=== PATIENT | female | born 1960 | race Hispanic/Latino ===

== ENCOUNTER 2017-06-10 22:28 | Observation (INO) | payer OTHER ==
[~2017-06-10] VITALS: Ht 170.2 cm; Wt 117.0 kg
[~2017-06-10 22:28] MED LIST: ACET325T12 PO; ACET500T73 PO; AMLO10TA4 PO; AMLO5TAB4 PO; ATOR40TA PO; HYDR-925 PO; Hydrocodone Bit/Acetaminophen PO; IBUP400T PO; LISI1TAB7 PO; METO50TA4 PO; NITR0.4T8 SL; OLME20TA PO; RIVA10TA PO
--- NOTE | 2017-06-10 22:50 | NUR ---
URINE COLLECTED AND TAKEN TO LAB
--- NOTE | 2017-06-10 22:55 | ER.PDOC ---
General Chief Complaint: Neck/Upper back Pain Stated Complaint: NECK PAIN Time seen by MD: 22:53 Source: patient Exam Limitations: no limitations History of Present Illness Initial Comments Neck pain and dizziness. Pain comes and goes. No fever or chills. Timing/Duration: this evening Severity/Quality: moderate Method of Injury: unknown Associated Symptoms: other (headache) Allergies: Coded Allergies: levofloxacin (Verified Allergy, Severe, unknown, 02/22/16) morphine (Verified Allergy, Severe, 02/22/16) Penicillins (Verified Allergy, Unknown, unknown, 02/22/16) Home Meds Reported Medications Valsartan/Hydrochlorothiazide (DIOVAN HCT 160-25 MG TABLET) 1 Each Tablet, 1 TAB PO DAILY, #30 TAB 5 Refills 06/11/17 Metoprolol Succinate (TOPROL XL) 50 Mg Tab.er.24h, 1 TAB PO DAILY for BLOOD PRESSURE, #30 TAB 3 Refills 02/24/16 Discontinued Reported Medications Nitroglycerin (NITROGLYCERIN) 0.4 Mg Tab.subl, 0.4 MG SL BID Y for CHEST PAIN, # 2 3 Refills 02/24/16 Amlodipine Besylate (NORVASC) 10 Mg Tablet, 1 TAB PO DAILY, #30 TAB 5 Refills 02/24/16 Amlodipine Besylate (NORVASC) 5 Mg Tablet, 1 TAB PO DAILY for BLOOD PRESSURE, # 30 TAB 3 Refills 02/24/16 Atorvastatin 40MG (LIPITOR 40MG) 40 Mg Tablet, 1 TAB PO HS for CHOLESTEROL, #30 TAB 3 Refills 02/24/16 Acetaminophen (ACETAMINOPHEN) 500 Mg Tablet, 2 TAB PO BID Y for PAIN, #60 TAB 1 Refill 02/22/16 Lisinopril/Hydrochlorothiazide (LISINOPRIL-HCTZ 20-25 MG TAB) 1 Each Tablet, 1 EACH PO DAILY 11/25/13 Past Medical History Medical History: cardiac problems, high cholesterol, hypertension Surgical History: cholecystectomy, hysterectomy, knee LMP (females 10-50): hysterectomy Social History Smoking: non-smoker Alcohol Use: none Drug Use: none Review of Systems Constitutional: no symptoms reported EENTM: see HPI Respiratory: no symptoms reported Cardiovascular: no symptoms reported Gastrointestinal: no symptoms reported Musculoskeletal: see HPI All Other Systems: Reviewed and Negative Physical Exam General Appearance: No Apparent Distress, WD/WN Neck: Painful Range of Motion, Paraspinous Muscle Tender Cardiovascular/Respiratory: Regular Rate, Rhythm, No M/R/G, Normal Peripheral Pulses, No JVD, Normal Breath Sounds, No Respiratory Distress Gastrointestinal: Normal Bowel Sounds, No Organomegaly, No Pulsatile Mass, Non Tender, Soft Back: Normal Inspection, No CVA Tenderness, No Vertebral Tenderness Extremities: No Evidence of Injury, Normal Range of Motion, Non-Tender, No Pedal Edema, Pelvis Stable Neuro/Psych: Alert, 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/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, mood/effect nml, No Motor/Sensory Deficits, Relexes nml Results/Orders Results/Orders Laboratory Tests Test 06/10/17 00:00 06/10/17 22:55 Urine Collection Type VOID Urine Color STRAW (YELLOW) Urine Appearance CLEAR (CLEAR) Urine Bilirubin NEGATIVE MG/DL (NEGATIVE) Urine Ketones NEGATIVE (NEGATIVE) Urine Specific [place] 1.005 (1.005-1.035) Urine pH 6.5 (5.0-6.0) Urine Protein NEGATIVE (NEGATIVE) Urine Urobilinogen NORMAL (NEGATIVE) Urine Nitrate NEGATIVE (NEGATIVE) Urine Leukocyte Esterase 100/ul 1+ (NEGATIVE) Urine Blood NEGATIVE (NEGATIVE) Urine RBC 0-2 RBC/HPF (NONE SEEN) Urine WBC 5-10 WBC/HPF (0-2) Urine Squamous Epithelial Cells RARE #/HPF (FEW) Urine Bacteria NONE SEEN (NONE SEEN) Urine Glucose NORMAL (NEGATIVE) White Blood Count 10.2 10^3/uL (4.5-11.0) Red Blood Count 4.61 10^6/uL (4.00-5.20) Hemoglobin 13.4 g/dL (12.0-15.0) Hematocrit 41.0 % (36.0-46.0) Mean Corpuscular Volume 88.9 fL (78-100) Mean Corpuscular Hemoglobin 29.1 pg (26-34) Mean Corpuscular Hemoglobin Concent 32.7 g/dL (33-37) Red Cell Distribution Width 12.7 % (11.5-14.5) Platelet Count 267 10^3/uL (150-400) Mean Platelet Volume 9.6 fL (7.8-11.0) Neutrophils (%) (Auto) 58.4 % (41.0-85.0) Lymphocytes (%) (Auto) 33.5 % (24.0-44.0) Monocytes (%) (Auto) 4.8 % (5.0-12.0) Neutrophils # (Auto) 6.0 10^3/uL (1.8-7.7) Lymphocytes # (Auto) 3.4 10^3/uL (1.0-4.8) Monocytes # (Auto) 0.5 10^3/uL (0.3-0.8) Absolute Immature Granulocyte (auto 0.01 10^3 u/L (0-2) Eosinophils % 3.0 % (0.0-5.0) Basophils % 0.2 % (0.0-0.2) Basophils # 0.0 10^3/uL (0.0-0.1) Eosinophil Count 0.3 10^3/uL (0.0-0.2) Sodium Level 124 mmol/L (132-145) Potassium Level 2.9 mmol/L (3.6-5.2) Chloride Level 96.0 mmol/L (96-109) Carbon Dioxide Level 28.3 mmol/L (20.0-32) Anion Gap 2.6 Blood Urea Nitrogen 21 mg/dL (7-18) Creatinine 0.90 mg/dL (0.59-1.40) Estimated GFR () 77.8 (>/=60) BUN/Creatinine Ratio 23.0 Glucose Level 120 mg/dL (70-110) Calcium Level 9.3 mg/dL (8.4-10.5) Total Bilirubin 0.3 mg/dL (0.2-1.0) Aspartate Amino Transf (AST/SGOT) 19 U/L (0-35) Alanine Aminotransferase (ALT/SGPT) 12 U/L (12-78) Alkaline Phosphatase 77 U/L (50-136) Total Creatine Kinase 63 U/L (26-192) Creatine Kinase MB 0.8 ng/mL (0.0-3.6) Troponin I < 0.02 ng/mL (0.00-0.05) Total Protein 7.9 g/dL (6.4-8.2) Albumin 3.5 g/dL (3.4-5.0) Globulin 4.4 Percent Immature Gran (Cell Imm) 0.10 % (0.00-0.50) Progress Progress Sodium 4 days ago was 142 compared with 124 today. That is a significant drop. EKG/XRAY/CT/US CT Comments: Nothing acute on CT head and C spine Departure Time of Disposition: 00:57 Disposition: 01 HOME, SELF-CARE Impression: Primary Impression: Hyponatremia Additional Impressions: Dizziness Neck pain UTI (urinary tract infection) Qualified Codes: N39.0 - Urinary tract infection, site not specified Condition: Stable Referrals: ALEXANDER APARICIO MD (PCP) PRIMARY CARE PROVIDER Comments Admitted by Dr. Tay WASSERMAN,KRISTEN Argueta MD Jun 10, 2017 22:55
[2017-06-10 23:04] LABS: BASOPHIL % 0.2 % (0.0-0.2); EOSINOPHIL # 0.3 10^3/uL (0.0-0.2); HEMOGLOBIN 13.4 g/dL (12.0-15.0); LYMPHOCYTES # 3.4 10^3/uL (1.0-4.8); LYMPHOCYTES % 33.5 % (24.0-44.0); MEAN CELL HGB 29.1 pg (26-34); MEAN CELL HGB CONCENTRATION 32.7 g/dL (33-37); MEAN CORP VOLUME 88.9 fL (78-100); MEAN PLATELET VOLUME 9.6 fL (7.8-11.0); MONOCYTES # 0.5 10^3/uL (0.3-0.8); MONOCYTES % 4.8 % (5.0-12.0); NEUTROPHILS % 58.4 % (41.0-85.0); RED CELL DISTRIBUTION WIDTH 12.7 % (11.5-14.5); WHITE BLOOD CELL 10.2 10^3/uL (4.5-11.0)
--- NOTE | 2017-06-10 23:10 | NUR ---
TO CT PATIENT TO CT VIA STRETCHER WITH PEGGY FELDMAN
[2017-06-10 23:15] LABS: BILIRUBIN,URINE NEGATIVE (NEGATIVE); UROBILINOGEN,URINE NORMAL (NEGATIVE)
--- NOTE | 2017-06-10 23:17 | PCM.EKG ---
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
--- NOTE | 2017-06-10 23:24 | NUR ---
BACK FROM CT PATIENT BACK FROM CT, FAMILY AT BEDSIDE. NO NEEDS VOICED BY PATIENT OR FAMILY
[2017-06-10 23:28] LABS: APPEARANCE,URINE CLEAR (CLEAR); UA COLOR STRAW (YELLOW)
[2017-06-10 23:31] LABS: ALANINE AMINOTRANSFERASE 12 U/L (12-78); ALKALINE PHOSPHATASE 77 U/L (50-136); ASPARTATE AMINO TRANSFERASE 19 U/L (0-35); CALCIUM 9.3 mg/dL (8.4-10.5); CARBON DIOXIDE 28.3 mmol/L (20.0-32); GLUCOSE 120 mg/dL (70-110)
--- NOTE | 2017-06-10 23:31 | DIREP ---
PROCEDURE:CT HEAD WITHOUT CONTRAST TECHNIQUE:Axial cuts were obtained through the head, without intravenous contrast material. The images were viewed at brain and bone settings. COMPARISON:None. INDICATIONS:PENDLETON, DENIES TRAUMA, LEFT SIDED PAIN FINDINGS: VENTRICLES:There is no hydrocephalus. CEREBRUM:There is no CT evidence of mass, hemorrhage, or acute infarct. CEREBELLUM:Normal. BRAINSTEM:Normal. SKULL:Normal. SINUSES:Normal. OTHER:Negative. CONCLUSION: 1. No intracranial abnormality is identified. 2. Normal exam. Dictated by: Jimmie Huber MD on 06/10/2017 at 11:29 PM
--- NOTE | 2017-06-10 23:38 | DIREP ---
PROCEDURE:CT CERVICAL SPINE WITHOUT CONTRAST TECHNIQUE:Axial cuts were obtained through the cervical spine. The images were viewed at bone settings. Sagittal and coronal reconstructions are provided. COMPARISON:None. INDICATIONS:NECK PAIN X 1 DAY, DENIES TRAUMA FINDINGS: ALIGNMENT:Normal. VERTEBRAE:Normal. PARASPINAL AREA:Normal. OTHER:No additional findings. CERVICAL DISC LEVELS Mild generalized disc space loss with greatest degree of disc space loss at C5/C6 and C6/C7. CONCLUSION:No fracture. Slight straightening of the cervical spine. Age appropriate degenerative changes in the lower cervical spine. If there are any neurologic symptoms, MRI may be helpful. Dictated by: Jimmie Huber MD on 06/10/2017 at 11:31 PM
[2017-06-11] MEDS ORDERED: VALS1TAB14 PO (00:36)
[2017-06-11] MEDS ORDERED: TYLENOL PO PRN (01:00)
[2017-06-11] MEDS ORDERED: ROCEPHIN 1,000 MG in NS 100ML 100 ML IV SCH (01:00)
[2017-06-11] MEDS ORDERED: ZOFRAN IV PRN (01:00)
[2017-06-11] MEDS ORDERED: KLOR-CON 10 PO SCH (01:00)
[2017-06-11] MEDS ORDERED: NS 100ML 100 ML IV ONE (01:13)
[2017-06-11] MEDS ORDERED: ROCEPHIN ONE (01:14)
[2017-06-11] MEDS: NS 1000ML 1,000 ML IV SCH ×2 (01:33→11:00)
[2017-06-11 01:55] VITALS: BP 165/99
--- NOTE | 2017-06-11 06:44 | NUR ---
Report Report given to Kerri Lacy RN
--- NOTE | 2017-06-11 07:40 | NUR ---
PATIENT EATING BREAKFAST. Patient sitting up in bed eating breakfast no difficulty chewing or swallowing. Denies any wants or needs at this time. No s/s of distress noted call light in reach. will continue to monitor
[2017-06-11] MEDS ORDERED: TOPROL XL PO SCH (09:00)
[2017-06-11] MEDS ORDERED: DIOVAN PO SCH (09:00)
[2017-06-11 10:17] LABS: CARBON DIOXIDE 25.9 mmol/L (20.0-32)
[2017-06-11 11:53] VITALS: BP 143/78
[2017-06-11] MEDS ORDERED: VALS160T3 PO (12:17)
[2017-06-11] MEDS ORDERED: CEPH-350 PO (12:17)
[2017-06-11 12:59] VITALS: BP 143/78
--- NOTE | 2017-06-11 16:21 | HPH ---
ADMIT DATE: 06/11/2017 CHIEF COMPLAINT: Weakness, upper back and neck pain, dizziness. HISTORY OF PRESENT ILLNESS: The patient is a 56-year-old woman with a past medical history significant for hypertension, hyperlipidemia, coronary artery disease, who presented to the ER initially complaining of just neck pain. She had a CT done that did not reveal any significant pathology. In the workup, she had lab work done, which revealed a sodium of 124 and a potassium of 2.9. She was on a thiazide diuretic, this was held and she was given IV fluids. She did not complain of any further neck pain. She has had no recent trauma. No injuries noted. PAST MEDICAL HISTORY: Includes hypertension, hyperlipidemia, coronary artery disease. PAST SURGICAL HISTORY: She has had knee surgery, hysterectomy, cholecystectomy. ALLERGIES: FLUOROQUINOLONES, PENICILLIN, MORPHINE. MEDICATIONS: Her home medication list includes Diovan-HCT 160-25 mg tablet daily, Toprol XL 50 mg daily. SOCIAL HISTORY: She does live at home. No alcohol, tobacco, or illicit drug use history. FAMILY HISTORY: Negative for early coronary artery disease or diabetes. REVIEW OF SYSTEMS: CARDIAC: Denies chest pain, shortness of breath, or dyspnea on exertion. PULMONARY: No cough, sputum production, or pleuritic chest pain. GASTROINTESTINAL: No nausea, vomiting, diarrhea, or constipation. All else negative in the 10-point Review of Systems, except as in the HPI. PHYSICAL EXAMINATION: VITAL SIGNS: Vitals upon arrival to the ER: Height 170.2 cm, weight 117 kilograms, BMI 40.4, temperature 97.6 degrees Fahrenheit, pulse 59, respiratory rate 16, blood pressure 124/74 mmHg, O2 saturation 99% on room air. GENERAL: She is alert, in no acute distress at the time of exam. HEENT: Pupils are equal, round, and reactive to light. Sclerae are anicteric. Oropharynx is clear. Mucous membranes are moist. NECK: Supple, no lymphadenopathy. CARDIOVASCULAR: At the time of exam was regular rate and rhythm. LUNGS: Clear bilaterally, no wheezing. ABDOMEN: Soft, bowel sounds are present, nontender to palpation. EXTREMITIES: No cyanosis, clubbing, or significant edema. NEUROLOGIC: Grossly nonfocal. INITIAL LABORATORY DATA: BMP: Sodium 124, potassium 2.9, chloride 96, CO2 28, BUN 21, creatinine 0.9, glucose 120, calcium 9.3, total bilirubin 0.3, AST 19, ALT 12, alkaline phosphatase 77, total CK 63, CK-MB 0.8, troponin I less than 0.02, total protein 7.9, albumin 3.5. CBC: White count 10.2, hemoglobin 13.4, platelets 267. Differential: 58% neutrophils, 33% lymphocytes, 5% monocytes. IMAGING STUDIES: CT of the cervical spine revealed only some slight straightening of the cervical spine, with mild degenerative changes of the lower cervical spine. CT head was negative for acute process. ASSESSMENT AND PLAN:. The patient is a 56-year-old woman here with dizziness and some asthenia from hyponatremia secondary to a thiazide diuretic, with a history of hypertension. 1. We will continue the current blood pressure medications. We will hold the thiazide diuretic. 2. IV fluid hydration. 3. Appropriate p.r.n. pain and nausea medications. 4. DVT prophylaxis with SCDs if in the hospital for more than 24 hours. 5. Initially due to the severity of the symptoms with dizziness and weakness due to drug side effect full admit. 6. Overnight, she did clinically improve faster than expected, sodium returned to normal with 141, potassium 3.7. The patient is feeling much better and requesting to go home. She did improve quickly than expected. 7. Routine discharge to home. 8. Discharge followup with Dr. Liao in 1 to 2 weeks. 9. Discharge medications: She will take metoprolol and Diovan without the HCT. Also, we have given cephalexin for a urinary tract infection present on admission. The discharge plans were discussed with the patient and family. The patient is her own decision maker, she does understand and concurs with the plans. Carlos Cross MD DR: ENRRIQUE/rebecca JOB# [id number] BEBA
== END 2017-06-11 13:00 | disposition home or self-care (01) ==
LOC: ER 22:28 → MS 06-11 00:23 → UNDOADMOB 06-11 00:23 → OBSVTOIN 06-11 00:38 → INTOOBSV 06-11 00:38 → UNDODISOB 06-11 13:00
PROVIDERS: ADMIT Internal Medicine; ATTEND Internal Medicine
DX: E87.1 Hypo-osmolality and hyponatremia (principal); R42 Dizziness and giddiness; I10 Essential (primary) hypertension; E78.00 Pure hypercholesterolemia, unspecified; M54.2 Cervicalgia; N39.0 Urinary tract infection, site not specified; E78.5 Hyperlipidemia, unspecified; I25.10 Atherosclerotic heart disease of native coronary artery without angina pectoris; Z90.710 Acquired absence of both cervix and uterus; Z98.890 Other specified postprocedural states
CPT/HCPCS: 36415 ×2; 70450; 72125; 80048; 80053; 81000; 82550; 82553; 84484; 85025; 93005; 96361; 96365; 99285; A9150; G0378 ×13; J0696; J3480; J7030 ×2; J7050 ×2; 93880; 96374

== ENCOUNTER → 2017-06-13 | Outpatient (CLI) | payer OTHER ==
[~2017-06-13] MED LIST changes: +CEPH-350 PO; +VALS160T3 PO; +VALS1TAB14 PO
--- NOTE | 2017-06-13 15:22 | DIREP ---
PROCEDURE:US DOPPLER CAROTID BILATERAL COMPARISON:None. INDICATIONS:HTN, DIZZINESS & GIDDINESS TECHNIQUE:Sonographic evaluation of carotid arteries was performed together with grayscale, color-flow, and spectral analysis. FINDINGS: PEAK FLOW VELOCITIES (cm/sec) RIGHT CCA: PROX:86.4 cm/s MID:63.3 cm/s DIST:75.4 cm/s RIGHT ICA: PROX:83.8 cm/s MID:81.3 cm/s DIST:54.4 cm/s RIGHT ECA (prox):112.8 cm/s RIGHT ICA/CCA:1.1 RIGHT VERTEBRAL:56.4 cm/s;Antegrade LEFT CCA: PROX:98.5 cm/s MID:58.8 cm/s DIST:81.7 cm/s LEFT ICA: PROX:53.8 cm/s MID:44.9 cm/s DIST:45.7 cm/s LEFT ECA (prox):58.4 cm/s LEFT ICA/CCA:0.7 LEFT VERTEBRAL:43.1 cm/s;Antegrade IMAGES:Intimal thickening and/or plaque formation. CONCLUSION: 1. The degree of stenosis in the right internal carotid artery is < 50%. 2. The degree of stenosis in the left internal carotid artery is < 50%. GUIDELINES: Consensus Panel Abel-scale and Doppler US Criteria for Diagnosis of ICA Stenosis Radiology, Jul 2003; Bar et al. 229 (2): 340- 346 Degree of Stenosis (%) NormalWhen there is < 125 cm/s and no plaque or intimal thickening is visible < 50When there is < 125 cm/s and plaque or intimal thickening is visible 50 - 69When there is 125 - 230 cm/s and plaque is visible 70 but less than near occlusionWhen there is > 230 cm/s and visible plaque and luminal narrowing are seen Near occlusionWhen there is marked narrowed lumen at color Doppler US Total occlusionWhen there is no detectable patent lumen at grayscale US and no flow at spectral, power and color Doppler US Dictated by: ESTRELLA Physician on 06/13/2017 at 02:13 PM ac
== END | disposition home or self-care (01) ==
LOC: RAD 06-07 08:56
PROVIDERS: ATTEND Internal Medicine
DX: I65.23 Occlusion and stenosis of bilateral carotid arteries (principal); R42 Dizziness and giddiness
CPT/HCPCS: 93880

== ENCOUNTER → 2018-08-07 | Outpatient (CLI) | payer BC ==
[~2018-08-07] MED LIST changes: +HYDR-3469 PO; -HYDR-925 PO; +IBUP-1127 PO; -IBUP400T PO; +NITR0.4T26 SL; -NITR0.4T8 SL; -OLME20TA PO; +OLME20TA17 PO
--- NOTE | 2018-08-07 12:47 | DIREP ---
PROCEDURE:Digital Screening Mammogram TECHNIQUE:MLO and CC digital images of each breast are provided. Computer Assisted Detection (CAD) was utilized. COMPARISON:10/18/2016, 09/09/2015, 06/09/2014, 04/19/2013. INDICATIONS:SCREENING BREAST COMPOSITION:The breasts are almost entirely fatty. FINDINGS:There are no grouped microcalcifications, masses, or architectural distortions to suggest malignancy. There is no significant interval change as compared to the prior examinations. IMPRESSION:No mammographic evidence of malignancy. RECOMMENDATIONS:Routine Screening Mammography per [employer] guidelines. OVERALL FINAL ASSESSMENT:BI-RADS 1 - Negative Mammogram Note: This facility participates in a mammography screening patient reminder system. Dictated by: Derrek Bocanegra M.D. on 08/07/2018 at 12:40 PM
== END | disposition home or self-care (01) ==
LOC: RAD 09:48
PROVIDERS: ATTEND Nurse Practitioner
DX: Z12.31 Encounter for screening mammogram for malignant neoplasm of breast (principal)
CPT/HCPCS: 77067

== ENCOUNTER → 2018-12-05 | Outpatient (CLI) | payer BC | END | disposition home or self-care (01) | LOC: LAB 12:06 | PROVIDERS: ATTEND Nurse Practitioner | DX: R30.0 Dysuria (principal); Z88.0 Allergy status to penicillin; Z88.5 Allergy status to narcotic agent; Z88.8 Allergy status to other drugs, medicaments and biological substances | CPT/HCPCS: 87077; 87086; 87186 ==

== ENCOUNTER 2019-01-26 20:40 | Emergency (ER) | payer BC ==
[~2019-01-26] VITALS: Ht 170.2 cm; Wt 96.6 kg
[2019-01-26 20:50] VITALS: BP 183/64
[2019-01-26 21:39] LABS: BASOPHIL % 0.3 % (0.0-0.2); EOSINOPHIL # 0.3 10^3/uL (0.0-0.2); EOSINOPHIL % 3.9 % (0.0-5.0); HEMOGLOBIN 12.9 g/dL (12.0-15.0); LYMPHOCYTES # 3.1 10^3/uL (1.0-4.8); LYMPHOCYTES % 39.7 % (24.0-44.0); MEAN CELL HGB 30.9 pg (26-34); MEAN CORP VOLUME 90.7 fL (78-100); MEAN PLATELET VOLUME 10.1 fL (7.8-11.0); MONOCYTES # 0.4 10^3/uL (0.3-0.8); MONOCYTES % 4.8 % (5.0-12.0); NEUTROPHILS % 51.3 % (41.0-85.0); RED CELL DISTRIBUTION WIDTH 12.7 % (11.5-14.5); WHITE BLOOD CELL 7.9 10^3/uL (4.5-11.0)
--- NOTE | 2019-01-26 21:43 | PCM.EKG ---
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
[2019-01-26 21:57] LABS: CALCIUM 9.5 mg/dL (8.4-10.5); CARBON DIOXIDE 26.3 mmol/L (20.0-32)
[2019-01-26 21:59] LABS: BILIRUBIN,URINE NEGATIVE (NEGATIVE); UROBILINOGEN,URINE NORMAL (NEGATIVE)
[2019-01-26 22:02] VITALS: BP 157/86
[2019-01-26 22:02] LABS: APPEARANCE,URINE CLEAR (CLEAR); UA COLOR YELLOW (YELLOW)
--- NOTE | 2019-01-26 22:56 | DIREP ---
PROCEDURE:CT ABDOMEN W/ CONTRAST COMPARISON:None. INDICATIONS:epigastric pain TECHNIQUE:Axial images were created through the abdomen with non-ionic intravenous contrast material. No oral contrast was administered. Sagittal and coronal reconstructions were performed from source images. FINDINGS: LUNG BASES:There is a small hiatal hernia. LIVER:Normal. No significant liver lesions are identified. BILIARY:The gallbladder is surgically absent. There is no biliary ductal dilatation. PANCREAS:Normal. No lesion, fluid collection, ductal dilatation, or atrophy. SPLEEN:Normal. No enlargement or focal lesion. ADRENALS:Normal. No mass or enlargement. URINARY TRACT:Normal, except for small left upper renal pole cyst. No focal lesions or hydronephrosis. AORTA/VASCULAR:There are aortic atherosclerotic calcifications present. No aneurysm. RETROPERITONEUM:Normal. No mass or adenopathy. BOWEL/MESENTERY:Normal. There is no intestinal obstruction, free fluid, free air or mesenteric inflammatory changes. ABDOMINAL WALL:Normal. No mass or hernia. PELVIC ORGANS:The pelvis was not imaged. BONES:There are degenerative changes of the spine. OTHER:Negative. CONCLUSION:Small hiatal hernia. No acute abnormalities seen. Dictated by: Imer Small M.D. on 01/26/2019 at 10:53 PM
--- NOTE | 2019-01-26 23:34 | ER.PDOC ---
General Chief Complaint: Abdomen Pain Stated Complaint: ABD PAIN Time seen by MD: 21:00 Source: patient, family Exam Limitations: language barrier History of Present Illness Initial Comments epigastric pain x 3 weeks intermittently but becoming worse and more frequent. No fever chills, nausea, vomiting, constipation, diarrhea. Pain has no radiation. It is worse with eating immediatley. She has had cholecystectomy, hysterectomy hernia repair, and several other non abdominal surgeries Timing/Duration: 1 week Severity/Quality: moderate Radiation: no radiation Associated Symptoms: denies symptoms Exacerbated by: food Relieved By: nothing Allergies: Coded Allergies: levofloxacin (Verified Allergy, Severe, unknown, 02/22/16) morphine (Verified Allergy, Severe, 02/22/16) Penicillins (Verified Allergy, Unknown, unknown, 02/22/16) Home Meds Active Scripts Cephalexin (KEFLEX) 500 Mg Capsule, 500 MG PO TID for 5 Days, #15 CAP Prov:FLACO PYLE MD 06/11/17 Valsartan (DIOVAN) 160 Mg Tablet, 1 TAB PO DAILY, #30 TAB 5 Refills Prov:FLACO PYLE MD 06/11/17 Reported Medications Metoprolol Succinate (TOPROL XL) 50 Mg Tab.er.24h, 1 TAB PO DAILY for BLOOD PRESSURE, #30 TAB 3 Refills 02/24/16 Vital Signs First Vital Signs Date Time Temp Pulse Resp B/P (MAP) Pulse Ox O2 Delivery O2 Flow Rate FiO2 01/26/19 20:50 98.2 67 20 183/64 (103) 99 Room Air 98.2 Last Vital Signs Date Time Temp Pulse Resp B/P (MAP) Pulse Ox O2 Delivery O2 Flow Rate FiO2 01/26/19 22:02 58 20 157/86 (109) 98 Room Air 01/26/19 20:50 98.2 98.2 Past Medical History Medical History: cardiac problems, high cholesterol, hypertension Surgical History: cardiac cath, cholecystectomy, hysterectomy, knee LMP (females 10-50): hysterectomy Family History Significant Family History: no pertinent family hx Social History Smoking: non-smoker Alcohol Use: none Drug Use: none Constitutional: no symptoms reported EENTM: no symptoms reported Respiratory: no symptoms reported Cardiovascular: no symptoms reported Gastrointestinal: see HPI Genitourinary: no symptoms reported Musculoskeletal: no symptoms reported Skin: no symptoms reported Psychiatric/Neurological: no symptoms reported Endocrine: no symptoms reported Hematologic/Lymphatic: no symptoms reported Physical Exam General Appearance: No Apparent Distress, WD/WN HEENT: PERRL/EOMI, Normal ENT Inspection Neck: Non-Tender, Full Range of Motion Respiratory: chest non-tender, lungs clear Cardiovascular: Normal Peripheral Pulses, Regular Rate, Rhythm Gastrointestinal: Normal Bowel Sounds, No Organomegaly, Soft, Tenderness Pelvic: Normal External Exam, Normal Adnexa Back: Normal Inspection, No CVA Tenderness Extremities: Normal Range of Motion, Non-Tender 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 (01/26/19 21:19) Urinalysis (01/26/19 21:19) Ekg-Routine (01/26/19 21:22) Ct Abd W Iv Contrast (01/26/19 21:40) Urine Culture (01/26/19:) Vital Signs Date Time Temp Pulse Resp B/P (MAP) Pulse Ox O2 Delivery O2 Flow Rate FiO2 01/26/19 22:02 58 20 157/86 (109) 98 Room Air 01/26/19 20:50 98.2 67 20 99 Room Air 98.2 01/26/19 20:50 98.2 67 20 98.2 01/26/19 20:50 98.2 67 20 183/64 (103) 99 Room Air 98.2 Laboratory Tests Test 01/26/19 20:53 01/26/19 21:25 Urine Collection Type CCMS Urine Color YELLOW (YELLOW) Urine Appearance CLEAR (CLEAR) Urine Bilirubin NEGATIVE MG/DL (NEGATIVE) Urine Ketones NEGATIVE (NEGATIVE) Urine Specific [place] 1.015 (1.005-1.035) Urine pH 7 (5.0-6.0) Urine Protein 15 mg/dL (NEGATIVE) H Urine Urobilinogen NORMAL (NEGATIVE) Urine Nitrate NEGATIVE (NEGATIVE) Urine Leukocyte Esterase 25 /uL TRACE (NEGATIVE) Urine Blood 150 3+ (NEGATIVE) H Urine RBC 0-2 RBC/HPF (NONE SEEN) Urine WBC 2-5 WBC/HPF (0-2) Urine Squamous Epithelial Cells FEW #/HPF (FEW) Urine Bacteria RARE (NONE SEEN) Urine Glucose NORMAL (NEGATIVE) White Blood Count 7.9 10^3/uL (4.5-11.0) Red Blood Count 4.18 10^6/uL (4.00-5.20) Hemoglobin 12.9 g/dL (12.0-15.0) Hematocrit 37.9 % (36.0-46.0) Mean Corpuscular Volume 90.7 fL (78-100) Mean Corpuscular Hemoglobin 30.9 pg (26-34) Mean Corpuscular Hemoglobin Concent 34.0 g/dL (33-37) Red Cell Distribution Width 12.7 % (11.5-14.5) Platelet Count 231 10^3/uL (150-400) Mean Platelet Volume 10.1 fL (7.8-11.0) Neutrophils (%) (Auto) 51.3 % (41.0-85.0) Lymphocytes (%) (Auto) 39.7 % (24.0-44.0) Monocytes (%) (Auto) 4.8 % (5.0-12.0) L Neutrophils # (Auto) 4.0 10^3/uL (1.8-7.7) Lymphocytes # (Auto) 3.1 10^3/uL (1.0-4.8) Monocytes # (Auto) 0.4 10^3/uL (0.3-0.8) Absolute Immature Granulocyte (auto 0 10^3 u/L (0-2) Immature Granulocytes % 0.00 % (0.00-0.50) Eosinophils % 3.9 % (0.0-5.0) Basophils % 0.3 % (0.0-0.2) H Basophils # 0.0 10^3/uL (0.0-0.1) Eosinophil Count 0.3 10^3/uL (0.0-0.2) H Prothrombin Time 10.0 SEC (9.8-11.9) Prothrombin Time INR (Non-Therap) 1.0 PTT 25.5 SEC (24.67-30.72) Sodium Level 146 mmol/L (132-145) H Potassium Level 3.5 mmol/L (3.6-5.2) L Chloride Level 108.0 mmol/L (96-109) Carbon Dioxide Level 26.3 mmol/L (20.0-32) Anion Gap 15.2 Blood Urea Nitrogen 16 mg/dL (7-18) Creatinine 0.75 mg/dL (0.59-1.40) Estimated GFR () 95.4 (>/=60) BUN/Creatinine Ratio 21.0 Glucose Level 114 mg/dL (70-110) H Calcium Level 9.5 mg/dL (8.4-10.5) Total Bilirubin 0.2 mg/dL (0.2-1.0) Aspartate Amino Transferase (AST) 17 U/L (0-35) Alanine Aminotransferase (ALT) 6 U/L (12-78) L Alkaline Phosphatase 71 U/L (50-136) Total Protein 6.8 g/dL (6.4-8.2) Albumin 3.2 g/dL (3.4-5.0) L Globulin 3.6 Amylase Level 70 U/L (25-115) Lipase 202 U/L (114-286) Helicobacter pylori Screen NEGATIVE (NEGATIVE) Course Vitals & review Data Vital Sign - Last 24 Hours 01/26/19 01/26/19 01/26/19 01/26/19 20:50 20:50 20:50 22:02 Temp 98.2 98.2 98.2 98.2 98.2 98.2 Pulse 67 67 67 58 Resp 20 20 20 20 B/P (MAP) 183/64 (103) 157/86 (109) Pulse Ox 99 99 98 O2 Delivery Room Air Room Air Room Air Laboratory Tests Test 01/26/19 20:53 01/26/19 21:25 Urine Collection Type CCMS Urine Color YELLOW Urine Appearance CLEAR Urine Bilirubin NEGATIVE MG/DL Urine Ketones NEGATIVE Urine Specific [place] 1.015 Urine pH 7 Urine Protein 15 mg/dL Urine Urobilinogen NORMAL Urine Nitrate NEGATIVE Urine Leukocyte Esterase 25 /uL TRACE Urine Blood 150 3+ Urine RBC 0-2 RBC/HPF Urine WBC 2-5 WBC/HPF Urine Squamous Epithelial Cells FEW #/HPF Urine Bacteria RARE Urine Glucose NORMAL White Blood Count 7.9 10^3/uL Red Blood Count 4.18 10^6/uL Hemoglobin 12.9 g/dL Hematocrit 37.9 % Mean Corpuscular Volume 90.7 fL Mean Corpuscular Hemoglobin 30.9 pg Mean Corpuscular Hemoglobin Concent 34.0 g/dL Red Cell Distribution Width 12.7 % Platelet Count 231 10^3/uL Mean Platelet Volume 10.1 fL Neutrophils (%) (Auto) 51.3 % Lymphocytes (%) (Auto) 39.7 % Monocytes (%) (Auto) 4.8 % Neutrophils # (Auto) 4.0 10^3/uL Lymphocytes # (Auto) 3.1 10^3/uL Monocytes # (Auto) 0.4 10^3/uL Absolute Immature Granulocyte (auto 0 10^3 u/L Immature Granulocytes % 0.00 % Eosinophils % 3.9 % Basophils % 0.3 % Basophils # 0.0 10^3/uL Eosinophil Count 0.3 10^3/uL Prothrombin Time 10.0 SEC Prothrombin Time INR (Non-Therap) 1.0 Activated Partial Thromboplast Time 25.5 SEC Sodium Level 146 mmol/L Potassium Level 3.5 mmol/L Chloride Level 108.0 mmol/L Carbon Dioxide Level 26.3 mmol/L Anion Gap 15.2 Blood Urea Nitrogen 16 mg/dL Creatinine 0.75 mg/dL Estimated GFR () 95.4 BUN/Creatinine Ratio 21.0 Glucose Level 114 mg/dL Calcium Level 9.5 mg/dL Total Bilirubin 0.2 mg/dL Aspartate Amino Transf (AST/SGOT) 17 U/L Alanine Aminotransferase (ALT/SGPT) 6 U/L Alkaline Phosphatase 71 U/L Total Protein 6.8 g/dL Albumin 3.2 g/dL Globulin 3.6 Amylase Level 70 U/L Lipase 202 U/L Helicobacter pylori Screen NEGATIVE Sepsis Infection Criteria Pres: None O2 Sat by Pulse Oximetry: 98 Departure Time of Disposition: 23:32 Disposition: 01 HOME, SELF-CARE Impression: Primary Impression: Epigastric abdominal pain Condition: Stable Patient Instructions: Abdominal Pain Referrals: ALEXANDER APARICIO MD (PCP) PRIMARY CARE PROVIDER Additional Instructions: 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 Prilosec 20 mg 2 tabs twice a day. Prescription omeprazole 40 mg qd #60 Duration or Time Spent with Pa: 60 min COSTA SCOTT MD January 26, 2019 23:34
[2019-01-26 23:54] VITALS: BP 148/88
[2019-01-26 23:55] VITALS: BP 157/86
--- NOTE | 2019-01-26 23:58 | NUR ---
IV IV removed, Tip Intact. Placed cottonball over IV site, secured with Coban. Instructed patient to remove when she arrived at home. Patient expressed understanding
== END 2019-01-26 23:50 | disposition home or self-care (01) ==
LOC: ER 20:40
DX: R10.13 Epigastric pain (principal); I10 Essential (primary) hypertension; E78.00 Pure hypercholesterolemia, unspecified; Z79.899 Other long term (current) drug therapy; Z90.710 Acquired absence of both cervix and uterus; Z90.49 Acquired absence of other specified parts of digestive tract; Z88.5 Allergy status to narcotic agent; Z88.0 Allergy status to penicillin
CPT/HCPCS: 36415; 74160; 80053; 81000; 82150; 83690; 85025; 85610; 85730; 86677; 87077; 87086; 87186; 93005; 99285; Q9965

== ENCOUNTER → 2020-11-23 | Outpatient (CLI) | payer BC ==
[~2020-11-23] MED LIST changes: +LISI1TAB20 PO; -LISI1TAB7 PO
[2020-11-23 09:14] LABS: BASOPHIL % 0.4 % (0.0-0.2); EOSINOPHIL # 0.2 10^3/uL (0.0-0.2); EOSINOPHIL % 3.2 % (0.0-5.0); LYMPHOCYTES # 2.16 10^3/uL1 (1.0-4.8); LYMPHOCYTES % 38.5 % (24.0-44.0); MEAN CORP HGB 29.8 pg (26-34); MONOCYTES # 0.3 10^3/uL (0.3-0.8); MONOCYTES % 5.2 % (5.0-12.0); NEUTROPHILS % 52.7 % (41.0-85.0); PLATELET COUNT 213 10^3/uL (150-400); RED CELL DISTRIBUTION WIDTH 11.9 % (11.5-14.5)
[2020-11-23 09:39] LABS: CALCIUM 8.9 mg/dL (8.4-10.5); CARBON DIOXIDE 28.1 mmol/L (20.0-32)
== END | disposition home or self-care (01) ==
LOC: LAB 08:58
PROVIDERS: ATTEND Internal Medicine
DX: E78.2 Mixed hyperlipidemia (principal); R60.9 Edema, unspecified; I10 Essential (primary) hypertension
CPT/HCPCS: 36415; 80053; 80061; 83880; 84439; 84443; 85025

== ENCOUNTER → 2021-04-30 | Outpatient (CLI) | payer BC ==
--- NOTE | 2021-04-30 16:42 | DIREP ---
PROCEDURE:CT ABDOMEN/PELVIS W/O CONTRAST COMPARISON:[facility], CT, CT ABDOMEN W/CONTRAST, 01/26/2019, 10:31 PM. INDICATIONS:MICROSCOPIC HEMATURIA, RLQ PAIN, RUQ PAIN TECHNIQUE:Axial images were created through the abdomen and pelvis without intravenous contrast material. No oral contrast was administered. Sagittal and coronal reconstructions were performed from source images. FINDINGS: LUNG BASES:Normal. No visible pulmonary or pleural disease. LIVER:Normal. No significant liver lesions are identified. BILIARY:Status post cholecystectomy. No biliary ductal dilatation. PANCREAS:Normal. No lesion, fluid collection, ductal dilatation, or atrophy. SPLEEN:Normal. No enlargement or focal lesion. ADRENALS:Normal. No mass or enlargement. URINARY TRACT:No hydronephrosis, nephrolithiasis, or ureteral calculi. Urinary bladder within normal limits. AORTA/VASCULAR:Limited without IV contrast. No aortic aneurysmal dilatation. Suggestion of retro aortic left renal vein. RETROPERITONEUM:Normal. No mass or adenopathy. BOWEL/MESENTERY:No free air. Lack of oral contrast limits evaluation of the bowel structures. Small hiatal hernia again seen. No small bowel dilatation seen to suggest obstruction. Appendix within normal limits sigmoid colonic diverticulosis without evidence diverticulitis. Borderline right lower quadrant and lower abdominal mesenteric lymph nodes, measuring up to 9 mm in short axis dimension. ABDOMINAL WALL:8.0 x 3.5 cm fat containing infraumbilical hernia. PELVIC ORGANS:Status post hysterectomy. No adnexal masses. Postsurgical change along the bilateral pelvic sidewall. BONES:Degenerative change without evidence of acute osseus abnormality. OTHER:Negative. CONCLUSION: 1. No bowel obstruction. Appendix within normal limits. Diverticulosis without evidence of diverticulitis. 2. Borderline right lower quadrant hernia and lower abdominal mesenteric lymph nodes. Findings could indicate mesenteric adenitis. Clinical and laboratory correlation is recommended. 3. No hydronephrosis, nephrolithiasis or ureteral calculi. 4. Status post cholecystectomy and hysterectomy. 5. Additional findings as described. Dictated by: Rajiv Luong MD on 04/30/2021 at 04:35 PM
== END | disposition home or self-care (01) ==
LOC: RAD 11:05
PROVIDERS: ATTEND Internal Medicine
DX: K44.9 Diaphragmatic hernia without obstruction or gangrene (principal); K42.9 Umbilical hernia without obstruction or gangrene; K57.30 Diverticulosis of large intestine without perforation or abscess without bleeding; M47.815 Spondylosis without myelopathy or radiculopathy, thoracolumbar region; R31.29 Other microscopic hematuria; Z90.49 Acquired absence of other specified parts of digestive tract; Z90.710 Acquired absence of both cervix and uterus
CPT/HCPCS: 74176

== ENCOUNTER 2021-11-19 09:40 | Emergency (ER) | payer BC ==
[~2021-11-19 09:40] MED LIST changes: -LISI1TAB20 PO; +LISI1TAB41 PO
[2021-11-19 09:43] VITALS: BP 160/104
--- NOTE | 2021-11-19 10:16 | PCM.EKG ---
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
[2021-11-19 10:20] LABS: BASOPHIL % 0.4 % (0.0-0.2); EOSINOPHIL # 0.2 10^3/uL (0.0-0.2); EOSINOPHIL % 2.6 % (0.0-5.0); LYMPHOCYTES # 2.38 10^3/uL1 (1.0-4.8); LYMPHOCYTES % 41.9 % (24.0-44.0); MEAN CORP HGB 30.2 pg (26-34); MONOCYTES # 0.3 10^3/uL (0.3-0.8); MONOCYTES % 4.6 % (5.0-12.0); NEUTROPHIL # 2.9 10^3/uL (1.8-7.7); NEUTROPHILS % 50.5 % (41.0-85.0); PLATELET COUNT 228 10^3/uL (150-400); RED CELL DISTRIBUTION WIDTH 12.7 % (11.5-14.5)
--- NOTE | 2021-11-19 10:31 | NUR ---
ddimer 0.56 reported from lab, read back and reported to edp.
[2021-11-19 10:36] LABS: CARBON DIOXIDE 25.5 mmol/L (20.0-32)
[2021-11-19 10:39] LABS: BILIRUBIN,URINE NEGATIVE (NEGATIVE); UROBILINOGEN,URINE 0.2 E.U./dL (0.2)
--- NOTE | 2021-11-19 10:42 | DIREP ---
PROCEDURE:CHEST 1 VIEW COMPARISON:[facility], CT, CT ABD/PELVIS W/O, 04/30/2021, 11:30 AM. [facility], CR, XRAY CHEST SINGLE VW, 10/14/2016, 07:39 PM. INDICATIONS:Chest pain FINDINGS: LUNGS/PLEURA:No significant pulmonary parenchymal abnormalities. No effusions. VASCULATURE:Normal. Unremarkable pulmonary vasculature. CARDIAC:Normal. No cardiac silhouette abnormality or cardiomegaly. Mildly tortuous aorta. MEDIASTINUM:Normal. No visible mass or adenopathy. BONES:Normal. No fracture or visible bony lesion. OTHER:Negative. CONCLUSION:No acute cardiopulmonary abnormalities. Dictated by: Derrek Bocanegra M.D. on 11/19/2021 at 10:40 AM
--- NOTE | 2021-11-19 11:44 | ER.PDOC ---
General Chief Complaint: Chest Pain-Cardiac Nature Stated Complaint: SHOULDER PAIN Time seen by MD: 11:40 Source: patient Exam Limitations: no limitations History of Present Illness Initial Comments 61-year-old female presents with chest pain and palpitations. Localized to the left side of the chest going to the left arm. No hemoptysis or pleuritic pain. No wheezing. No cough or sputum production. History of hypertension but no history of diabetes or hyper lipidemia. 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 Allergies: Coded Allergies: levofloxacin (Verified Allergy, Severe, unknown, 02/22/16) morphine (Verified Allergy, Severe, 02/22/16) Penicillins (Verified Allergy, Unknown, unknown, 02/22/16) Home Meds Active Scripts Cephalexin (KEFLEX) 500 Mg Capsule, 500 MG PO TID for 5 Days, #15 CAP Prov:FLACO PYLE MD 06/11/17 Valsartan (DIOVAN) 160 Mg Tablet, 1 TAB PO DAILY, #30 TAB 5 Refills Prov:FLACO PYLE MD 06/11/17 Reported Medications Metoprolol Succinate (TOPROL XL) 50 Mg Tab.er.24h, 1 TAB PO DAILY for BLOOD PRESSURE, #30 TAB 3 Refills 02/24/16 Past Medical History Medical History: hypertension Surgical History: cardiac cath, cholecystectomy, hysterectomy Social History Alcohol Use: none Drug Use: none Constitutional: denies no symptoms reported, denies see HPI, denies chills, denies diaphoresis, denies fever, denies malaise, denies weakness, denies other EENTM: denies no symptoms reported, denies see HPI, denies eye pain, denies blurred vision, denies tearing, denies double vision, denies ear pain, denies ear discharge, denies nose pain, denies nose congestion, denies throat pain, denies throat swelling, denies mouth pain, denies mouth swelling, denies other Respiratory: denies no symptoms reported, denies see HPI, denies cough, denies orthopnea, denies shortness of breath, denies SOB with exertion, denies SOB at rest, denies stridor, denies wheezing, denies other Cardiovascular: chest pain, palpitations Gastrointestinal: denies no symptoms reported, denies see HPI, denies abdomen distended, denies abdominal pain, denies blood streaked bowels, denies constipated, denies diarrhea, denies difficulty swallowing, denies nausea, denies poor appetite, denies poor fluid intake, denies rectal bleeding, denies vomiting, denies other Genitourinary: denies no symptoms reported, denies see HPI, denies burning, denies dysuria, denies discharge, denies frequency, denies flank pain, denies hematuria, denies incontinence, denies pain, denies urgency, denies other Musculoskeletal: denies no symptoms reported, denies see HPI, denies back pain, denies gout, denies joint pain, denies joint swelling, denies muscle pain, denies muscle stiffness, denies neck pain, denies other Skin: denies no symptoms reported, denies see HPI, denies change in color, denies change in hair/nails, denies dryness, denies lesions, denies lumps, denies rash, denies other Psychiatric/Neurological: denies no symptoms reported, denies see HPI, denies anxiety, denies depressed, denies emotional problems, denies headache, denies numbness, denies paresthesia, denies pre-existing deficit, denies seizure, denies tingling, denies tremors, denies weakness, denies other Endocrine: denies no symptoms reported, denies see HPI, denies excessive sweating, denies flushing, denies intolerance to cold, denies intolerance to heat, denies increased hunger, denies increased thrist, denies increased urine, denies unexplained weight gain, denies unexplaned weight loss, denies other Physical Exam General Appearance: No Apparent Distress, WD/WN HEENT: PERRL/EOMI, Normal ENT Inspection, TMs Normal, Pharynx Normal Neck: Non-Tender, Full Range of Motion, Supple, Normal Inspection Respiratory: chest non-tender, lungs clear, normal breath sounds, no respiratory distress, no accessory muscle use Cardiovascular: Normal Peripheral Pulses, Regular Rate, Rhythm Gastrointestinal: Normal Bowel Sounds, No Organomegaly, No Pulsatile Mass, Non Tender, Soft Extremities: Normal Range of Motion, Non-Tender, Normal Inspection, No Pedal Edema, No Calf Tenderness, Normal Capillary Refill 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, No Motor/Sensory Deficits, Alert, Normal Mood/Affect, Oriented x 3 Results/Orders Results/Orders Orders - HAO INGRAM MD Cbc With Auto Diff (11/19/21 10:13) Comprehensive Metabolic Panel (11/19/21 10:13) D-Dimer (11/19/21 10:13) Xr Chest 1v (11/19/21 10:13) Ekg-Routine (11/19/21 10:13) Troponin I High Sensitivity (11/19/21 10:13) Urinalysis (11/19/21 10:13) Urine Culture (11/19/21 10:13) Vital Signs Date Time Temp Pulse Resp B/P (MAP) Pulse Ox O2 Delivery O2 Flow Rate FiO2 11/19/21 09:43 99.2 80 18 11/19/21 09:43 99.2 80 18 160/104 (122) 98 Room Air 11/19/21 09:43 99.2 80 18 98 Laboratory Tests Test 11/19/21 09:45 11/19/21 10:25 White Blood Count 5.7 10^3/uL (4.5-11.0) Red Blood Count 4.37 10^6/uL (4.00-5.20) Hemoglobin 13.2 g/dL (12.0-15.0) Hematocrit 41.6 % (36.0-46.0) Mean Corpuscular Volume 95.2 fL (78-100) Mean Corpuscular Hemoglobin 30.2 pg (26-34) Mean Corpuscular Hemoglobin Concent 31.7 g/dL (33-36.5) L Red Cell Distribution Width 12.7 % (11.5-14.5) Platelet Count 228 10^3/uL (150-400) Mean Platelet Volume 9.7 fL (7.8-11.0) Neutrophils (%) (Auto) 50.5 % (41.0-85.0) Lymphocytes (%) (Auto) 41.9 % (24.0-44.0) Monocytes (%) (Auto) 4.6 % (5.0-12.0) L Neutrophils # (Auto) 2.9 10^3/uL (1.8-7.7) Lymphocytes # (Auto) 2.38 10^3/uL1 (1.0-4.8) Monocytes # (Auto) 0.3 10^3/uL (0.3-0.8) Absolute Immature Granulocyte (auto 0 10^3 u/L (0-2) Absolute Eosinophils (auto) 0.2 10^3/uL (0.0-0.2) Immature Granulocytes % 0.00 % (0.00-0.50) Eosinophils % 2.6 % (0.0-5.0) Basophils % 0.4 % (0.0-0.2) H Basophils # 0.0 10^3/uL (0.0-0.1) D-Dimer 0.56 mg/L (0.19-0.49) *H Sodium Level 134 mmol/L (132-145) Potassium Level 3.5 mmol/L (3.6-5.2) L Chloride Level 105.0 mmol/L (96-109) Carbon Dioxide Level 25.5 mmol/L (20.0-32) Anion Gap 7.0 Blood Urea Nitrogen 16 mg/dL (7-18) Creatinine 0.64 mg/dL (0.59-1.40) Estimated GFR () 113.4 (>/=60) Est GFR (CKD-EPI)(Non-Afr [place]ian) 93.7 (>/=60) BUN/Creatinine Ratio 25.0 Glucose Level 108 mg/dL (70-110) Calcium Level 9.0 mg/dL (8.4-10.5) Total Bilirubin 0.5 mg/dL (0.2-1.0) Aspartate Amino Transferase (AST) 18 U/L (0-35) Alanine Aminotransferase (ALT) 7 U/L (12-78) L Alkaline Phosphatase 67 U/L (50-136) Troponin I High Sensitivity 10 ng/L (0-50) Total Protein 7.3 g/dL (6.4-8.2) Albumin 3.5 g/dL (3.4-5.0) Globulin 3.8 Albumin/Globulin Ratio 0.921 Urine Collection Type RANDOM Urine Color YELLOW Urine Appearance CLEAR Urine Bilirubin NEGATIVE (NEGATIVE) Urine Ketones NEGATIVE (NEGATIVE) Urine Specific [place] 1.010 (1.005-1.030) Urine pH 6.5 (4.5-8.0) Urine Protein NEGATIVE (NEGATIVE) Urine Urobilinogen 0.2 E.U./dL (0.2) Urine Nitrate NEGATIVE (NEGATIVE) Urine Leukocyte Esterase 1+ (NEGATIVE) H Urine Glucose (Auto)(UA) NEGATIVE (NEGATIVE) Urine Blood 2+ (NEGATIVE) H Urine RBC 2-5 RBC/HPF (NONE SEEN) Urine WBC 5-10 WBC/HPF (0-2) H Urine Squamous Epithelial Cells FEW (<=FEW) Urine Bacteria FEW (NONE SEEN) H Progress Progress Given bouts of prolonged immobilization driving I obtained a D-dimer which was slightly elevated. Therefore since her legs are swollen and she has chest pain I will obtain a CTA of the chest and get ultrasound lower extremities. The rest of lab work and is pending. EKG shows left bundle branch block which daughter states is old for her. I will sign off the patient to the oncoming physician Dr. Mao ER DEPART Departure Time of Disposition: 13:34 Disposition: 01 HOME / SELF CARE / HOMELESS Impression: Primary Impression: Tenderness of chest wall Additional Impression: Muscle spasm Condition: Improved Referrals: ALEXANDER APARICIO MD (PCP) PRIMARY CARE PROVIDER Comments flexeril Rx provided, discussed with patient and family pain is likely non cardiac, recommend muscle relaxers, f/u with PCP trop negative (pain has been going on for a few days, single troponin adequate to rule out) EKG unchanged from previous care was assumed from Dr. Ingram at 12:01 pm Duration or Time Spent with Pa: 25 min Problem Qualifiers HAO INGRAM MD Nov 19, 2021 11:44 MISAEL MAO MD Nov 19, 2021 13:36
--- NOTE | 2021-11-19 12:14 | DIREP ---
PROCEDURE:CTA CHEST COMPARISON:None. INDICATIONS:CP, eleevated D-dimer, prolonged immobilization TECHNIQUE:Post contrast axial images through the chest with multiplanar MIP/3D reconstructions. FINDINGS: PULMONARY ARTERIES:Patent. LUNGS:Central airways are clear. Regions of ground-glass opacity to indicate active pneumonitis are not identified. Minimal dependent atelectasis, left lower lobe greater than right. PLEURA:No effusion. No pneumothorax CARDIAC:Moderate coronary artery calcifications. Heart size normal. No pericardial effusion THORACIC AORTA:Normal. MEDIASTINUM:Normal. THYROID:Normal. BONES:Degenerative changes of the spine OTHER:No additional findings. CONCLUSION:No pulmonary emboli. Minimal dependent atelectasis. No effusion, or pneumothorax. Dictated by: Akash Kingsley MD on 11/19/2021 at 12:08 PM
[2021-11-19] MEDS ORDERED: VALIUM ONE (12:50)
--- NOTE | 2021-11-19 12:52 | DIREP ---
PROCEDURE:US VENOUS IMAGING BILAT COMPARISON:None. INDICATIONS:leg swelling bilateral TECHNIQUE:The lower extremities were evaluated utilizing banegas scale images with segmental compression, color Doppler, and spectral Doppler with respiratory variation and augmentation. FINDINGS: RIGHT Common femoral vein:Patent Profunda femoris: Patent Superficial femoral vein:Patent Popliteal vein:Patent Posterior tibial vein:Patent Peroneal vein: Patent Greater saphenous vein:Patent Waveforms: Within normal limits. LEFT Common femoral vein:Patent Profunda femoris: Patent Superficial femoral vein:Patent Popliteal vein:Patent Posterior tibial vein:Patent Peroneal vein: Patent Greater saphenous vein:Patent Waveforms: Within normal limits. CONCLUSION:No evidence of deep venous thrombosis of the right or left lower extremities. Dictated by: Derrek Bocanegra M.D. on 11/19/2021 at 12:50 PM
[2021-11-19 13:30] VITALS: BP 134/74
[2021-11-19] MEDS ORDERED: VALIUM IV ONE (13:30)
== END 2021-11-19 13:47 | disposition home or self-care (01) ==
LOC: EDBD 09:40 → ER 09:40
DX: R07.89 Other chest pain (principal); M62.838 Other muscle spasm; R00.2 Palpitations; Z90.89 Acquired absence of other organs; Z90.710 Acquired absence of both cervix and uterus; Z88.5 Allergy status to narcotic agent; Z88.0 Allergy status to penicillin; Z88.1 Allergy status to other antibiotic agents
CPT/HCPCS: 36415; 71045; 71275; 80053; 81001; 84484; 85025; 85379; 87077; 87086; 87186; 93005; 93970; 96374; 99284; J3360; Q9965

== ENCOUNTER 2021-11-30 21:59 | Emergency (ER) | payer BC ==
[~2021-11-30] VITALS: Ht 165.1 cm; Wt 99.8 kg
--- NOTE | 2021-11-30 22:09 | NUR ---
ARRIVAL PRESENTED TO ED RM#6 AMBULATORY WITH C/O HIGH BP, DIZZINESS, PENDLETON. RATES PAIN 8-05/21. REPORTS NOT MISSING ANY MEDICATION. VS OBTAINED. DR. WASSERMAN NOTIFIED OF PATIENT ARRIVAL.
[2021-11-30 22:15] VITALS: BP 183/121
[2021-11-30] MEDS ORDERED: ATIVAN IV STA (22:21)
[2021-11-30] MEDS ORDERED: ATIVAN ONE (22:21)
[2021-11-30] MEDS ORDERED: ATIVAN PO ONE (22:30)
--- NOTE | 2021-11-30 22:30 | ER.PDOC ---
General Chief Complaint: Chest Pain-Non Cardiac Nature Stated Complaint: HBP, DIZZINESS TRAVEL OUT OF US: No Time seen by MD: 22:24 Source: patient Exam Limitations: no limitations History of Present Illness Initial Comments High blood pressure and dizziness since this afternoon. No chest pain or shortness of breath. Severity: moderate Associated Symptoms: denies symptoms Allergies: Coded Allergies: levofloxacin (Verified Allergy, Severe, unknown, 02/22/16) morphine (Verified Allergy, Severe, 02/22/16) Penicillins (Verified Allergy, Unknown, unknown, 02/22/16) Home Meds Active Scripts Cephalexin (KEFLEX) 500 Mg Capsule, 500 MG PO TID for 5 Days, #15 CAP Prov:FLACO PYLE MD 06/11/17 Valsartan (DIOVAN) 160 Mg Tablet, 1 TAB PO DAILY, #30 TAB 5 Refills Prov:FLACO PYLE MD 06/11/17 Reported Medications Metoprolol Succinate (TOPROL XL) 50 Mg Tab.er.24h, 1 TAB PO DAILY for BLOOD PRESSURE, #30 TAB 3 Refills 02/24/16 Past Medical History Medical History: hypertension Surgical History: cardiac cath, cholecystectomy, hysterectomy Family History Significant Family History: no pertinent family hx Social History Smoking: non-smoker Alcohol Use: none Drug Use: none Review of Systems Constitutional: no symptoms reported EENTM: see HPI Respiratory: no symptoms reported Cardiovascular: no symptoms reported Gastrointestinal: no symptoms reported Genitourinary: no symptoms reported All Other Systems: Reviewed and Negative Physical Exam General Appearance: No Apparent Distress, WD/WN, Anxious Neck: Non-Tender, Full Range of Motion, Supple, Normal Inspection Respiratory: chest non-tender, lungs clear, normal breath sounds, no respiratory distress, no accessory muscle use CVS: reg rate & rhythm, no murmur, no gallop, pulses nml, nml capillary refill Gastrointestinal: Normal Bowel Sounds, No Organomegaly, No Pulsatile Mass, Non Tender Back: Normal Inspection Extremities: Normal Range of Motion, Non-Tender, Normal Inspection 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 as 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, No Motor/Sensory Deficits, Alert, Normal Mood/Affect, Oriented x 3 Skin: Normal Color, Warm/Dry Results/Orders Results/Orders Orders - KRISTEN WASSERMAN MD Lorazepam (Ativan) (11/30/21 22:21) Lorazepam (Ativan) (11/30/21 22:30) Cbc With Auto Diff (11/30/21 22:21) Xr Chest 1v (11/30/21 22:21) Ekg-Routine (11/30/21 22:21) Troponin I High Sensitivity (11/30/21 22:21) Basic Metabolic Panel (11/30/21 22:21) Ct Head Wo Contrast (11/30/21 22:21) Lorazepam (Ativan) (11/30/21 22:21) Hydralazine Hcl (Apresoline) (11/30/21 23:27) Hydralazine Hcl (Apresoline) (11/30/21 23:29) Vital Signs Date Time Temp Pulse Resp B/P (MAP) Pulse Ox O2 Delivery O2 Flow Rate FiO2 11/30/21 23:32 64 193/116 11/30/21 22:15 98.2 74 17 11/30/21 22:15 98.2 74 17 183/121 (141) 98 Room Air 11/30/21 22:15 98.2 74 17 98 Administered Medications Medications (Trade) Dose Ordered Sig/Uyen Route PRN Reason Start Time Stop Time Status Last Admin Dose Admin Hydralazine HCl (Apresoline) 10 mg STAT STAT IV 11/30/21 23:27 11/30/21 23:28 DC 11/30/21 23:32 10 MG Lorazepam (Ativan) 1 mg STAT ONCE PO 11/30/21 22:30 11/30/21 22:31 DC 11/30/21 22:24 1 MG Laboratory Tests Test 11/30/21 22:40 White Blood Count 7.2 10^3/uL (4.5-11.0) Red Blood Count 4.88 10^6/uL (4.00-5.20) Hemoglobin 14.8 g/dL (12.0-15.0) Hematocrit 45.8 % (36.0-46.0) Mean Corpuscular Volume 93.9 fL (78-100) Mean Corpuscular Hemoglobin 30.3 pg (26-34) Mean Corpuscular Hemoglobin Concent 32.3 g/dL (33-36.5) L Red Cell Distribution Width 12.4 % (11.5-14.5) Platelet Count 246 10^3/uL (150-400) Mean Platelet Volume 10.1 fL (7.8-11.0) Neutrophils (%) (Auto) 50.2 % (41.0-85.0) Lymphocytes (%) (Auto) 41.8 % (24.0-44.0) Monocytes (%) (Auto) 5.1 % (5.0-12.0) Neutrophils # (Auto) 3.6 10^3/uL (1.8-7.7) Lymphocytes # (Auto) 3.02 10^3/uL1 (1.0-4.8) Monocytes # (Auto) 0.4 10^3/uL (0.3-0.8) Absolute Immature Granulocyte (auto 0.01 10^3 u/L (0-2) Absolute Eosinophils (auto) 0.2 10^3/uL (0.0-0.2) Immature Granulocytes % 0.10 % (0.00-0.50) Eosinophils % 2.5 % (0.0-5.0) Basophils % 0.3 % (0.0-0.2) H Basophils # 0.0 10^3/uL (0.0-0.1) Sodium Level 141 mmol/L (132-145) Potassium Level 3.6 mmol/L (3.6-5.2) Chloride Level 105.0 mmol/L (96-109) Carbon Dioxide Level 23.6 mmol/L (20.0-32) Glucose Level 107 mg/dL (70-110) Blood Urea Nitrogen 17 mg/dL (7-18) Creatinine 0.71 mg/dL (0.59-1.40) Calcium Level 9.0 mg/dL (8.4-10.5) Anion Gap 16.0 Estimated GFR () 100.6 (>/=60) Est GFR (CKD-EPI)(Non-Afr Russian) 83.1 (>/=60) BUN/Creatinine Ratio 23.0 Troponin I High Sensitivity 10 ng/L (0-50) Progress Progress CT head and chest x-ray shows no acute abnormality. CBC and chemistry are normal. Patient received 1 mg of Ativan and 10 mg of hydralazine. Blood pressure improved to 148/87. Overall she is feeling better to go home. ER DEPART Departure Time of Disposition: 00:26 Disposition: 01 HOME / SELF CARE / HOMELESS Impression: Primary Impression: Hypertensive urgency Condition: Improved Referrals: ALEXANDER APARICIO MD (PCP) PRIMARY CARE PROVIDER Additional Instructions: Keep a blood pressure diary and follow-up with your PCP in 2 to 3 days. Return to ED if worsening or concerns. Duration or Time Spent with Pa: 45 min KRISTEN WASSERMAN MD Nov 30, 2021 22:30
--- NOTE | 2021-11-30 22:48 | PCM.EKG ---
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
[2021-11-30 22:56] LABS: BASOPHIL % 0.3 % (0.0-0.2); EOSINOPHIL # 0.2 10^3/uL (0.0-0.2); EOSINOPHIL % 2.5 % (0.0-5.0); LYMPHOCYTES # 3.02 10^3/uL1 (1.0-4.8); LYMPHOCYTES % 41.8 % (24.0-44.0); MEAN CORP HGB 30.3 pg (26-34); MONOCYTES # 0.4 10^3/uL (0.3-0.8); MONOCYTES % 5.1 % (5.0-12.0); NEUTROPHIL # 3.6 10^3/uL (1.8-7.7); NEUTROPHILS % 50.2 % (41.0-85.0); PLATELET COUNT 246 10^3/uL (150-400); RED CELL DISTRIBUTION WIDTH 12.4 % (11.5-14.5)
[2021-11-30 23:07] LABS: CARBON DIOXIDE 23.6 mmol/L (20.0-32)
[2021-11-30] MEDS ORDERED: APRESOLINE IV STA (23:27)
[2021-11-30] MEDS ORDERED: APRESOLINE ONE (23:29)
[2021-11-30 23:30] VITALS: BP 193/116
[2021-11-30 23:35] VITALS: BP 148/87
--- NOTE | 2021-12-01 00:06 | DIREP ---
PROCEDURE:CT HEAD OR BRAIN W/O CONTRAST COMPARISON:[facility], CT, CT HEAD BRAIN W/O CONTRAST, 06/10/2017, 11:21 PM. [facility], CR, XRAY CHEST SINGLE VW, 11/30/2021, 11:17 PM. INDICATIONS:Elevated blood pressure and dizziness TECHNIQUE:Axial CT images were obtained from vertex to the skull base without the administration of IV contrast. FINDINGS: VENTRICLES: The ventricles are normal in size and configuration. No hydrocephalus. CEREBRUM: Normal cerebral morphology with appropriate banegas white matter differentiation. No intracranial hemorrhage, mass-effect, or midline shift. No CT evidence of acute infarction. CEREBELLUM: Normal. BRAINSTEM: Normal. BASAL CISTERNS: Normal. SKULL: Mild hyperostosis frontalis interna. No fracture. SINUSES: Mild mucosal thickening in the superior right maxillary sinus. Visualized paranasal sinuses and mastoid air cells are otherwise clear. OTHER: No scalp swelling. Stable mild calcified plaque in the carotid siphons. CONCLUSION: No acute intracranial abnormality. There is no significant change as compared with the previous examination. Dictated by: Curly Matias MD on 12/01/2021 at 00:03 AM
--- NOTE | 2021-12-01 00:07 | DIREP ---
PROCEDURE:CHEST 1 VIEW COMPARISON:[facility], CT, CT HEAD BRAIN W/O CONTRAST, 11/30/2021, 11:14 PM. [facility], CR, XRAY CHEST SINGLE VW, 11/19/2021, 10:13 AM. [facility], CR, XRAY CHEST SINGLE VW, 10/14/2016, 07:39 PM. INDICATIONS:Elevated blood pressure FINDINGS: LUNGS/PLEURA:No significant pulmonary parenchymal abnormalities. No effusion or pneumothorax. VASCULATURE:Normal. Unremarkable pulmonary vasculature. CARDIAC:Heart size is normal. MEDIASTINUM:Mildly tortuous and calcified thoracic aorta. BONES:Stable mild degenerative changes involving acromioclavicular joints and thoracic spine. No acute abnormality. OTHER:Bra artifact overlies the chest. CONCLUSION: 1. No acute cardiopulmonary abnormality. There is no significant change as compared with the previous examination. 2. Stable chronic findings, as above. Dictated by: Curly Matias MD on 12/01/2021 at 00:05 AM
[2021-12-01 00:31] VITALS: BP 148/87
== END 2021-12-01 00:33 | disposition home or self-care (01) ==
LOC: ER 21:59
DX: I16.0 Hypertensive urgency (principal); I10 Essential (primary) hypertension; Z88.1 Allergy status to other antibiotic agents; Z88.0 Allergy status to penicillin; Z88.5 Allergy status to narcotic agent; Z90.49 Acquired absence of other specified parts of digestive tract; Z90.710 Acquired absence of both cervix and uterus
CPT/HCPCS: 36415; 70450; 71045; 80048; 84484; 85025; 93005; 96374; 99284; J0360